=== PATIENT | female | born 1990 | race Caucasian/White ===

== ENCOUNTER 2022-04-30 23:13 | Emergency (ER) | payer OTHER ==
[~2022-04-30] VITALS: Ht 162.6 cm; Wt 59.0 kg
[2022-04-30] MEDS ORDERED: birth control (23:21)
--- NOTE | 2022-04-30 23:25 | NUR ---
Patient ambulated to room #2-b, informed of plan of care awaiting MD exam. No s/s of any distress noted at this time, will continue to monitor.
--- NOTE | 2022-05-01 00:39 | NUR ---
Ultrasound at bedside.
[2022-05-01 01:18] VITALS: BP 112/90
== END 2022-05-01 01:00 | disposition home or self-care (01) ==
LOC: ER 23:13
DX: M79.89 Other specified soft tissue disorders (principal)
CPT/HCPCS: A4663